=== PATIENT | male | born 2005 | race African-American/Black ===

== ENCOUNTER → 2024-10-14 | Outpatient (CLI) | payer OTHER | LOC: M CARPUL 09:08 | PROVIDERS: ATTEND Physician Assistant | DX: R06.02 Shortness of breath (principal) ==

== ENCOUNTER → 2024-11-11 | Outpatient (CLI) | payer OTHER ==
[~2024-11-11] MED LIST: METHACHOLINE KIT (6 VIAL.NEB PREMIX) INH ONE
== END ==
LOC: EDUNIT# 10-19 10:00 → M CARPUL 09:32
PROVIDERS: ATTEND Physician Assistant
DX: R06.02 Shortness of breath (principal)